=== PATIENT | female | born 1960 | race Caucasian/White ===

== ENCOUNTER 2024-03-21 12:58 | Emergency (ER) | payer OTHER, SELFPAY ==
[2024-03-21 13:09] VITALS: BP 140/80; PULSE 104; RESP 20; TEMP 36.6; O2SAT 98
--- NOTE | 2024-03-21 13:15 | RT.EKG_ITS ---
APPROVED REPORT Exam: Resting ECG Reason for Exam: SOB Patient Location: E HR:85 bpm ECG Measurements Heart Rate 85 AXIS MD 142 P 42 QRSd 97 QRS -29 QT 370 T 14 QTc 440 Conclusion Sinus rhythm...normal P axis, V-rate 60- 99
--- NOTE | 2024-03-21 13:45 | DI.MRI_ITS ---
Exam(s) MR CERVICAL SPINE WO EXAM: MR CERVICAL SPINE WO CLINICAL HISTORY: concern for cerivical, upper thoracic radiculopath TECHNIQUE: Multiplanar multisequence MRI of the cervical spine was performed without intravenous con trast. As per request this study was performed down to the lower T4 level. COMPARISON: No exams were available for comparison FINDINGS: CERVICOMEDULLARY JUNCTION: Intact with no evidence of cerebellar tonsillar ectopia. No obvious abnor mality of the odontoid process. No evidence of Chiari 1 malformation. CERVICAL SPINAL CORD: There is no abnormal signal in the cervical spinal cord and no evidence of foca l cord atrophy nor focal cord swelling. OSSEOUS:There are no cervical fractures evident. No significant osseous lesions in the cervical vert ebrae. No abnormal signal in the C1 arch and odontoid. INDIVIDUAL LEVELS: C2-3: No disc herniation nor central canal stenosis. There is moderate facet arthropathy on the righ t side with mild right-sided foraminal stenosis. Only minimal degenerative changes in the left facet joint at this level and there is no foraminal stenosis on the left side.. C3-4: Normal disc height and signal. There is a very small posterolateral right disc protrusion whic h extends posteriorly 1 mm and is approximately 3 mm wide, best seen on the oblique images. There is no central spinal canal stenosis. The disc protrusion does not extend into the exiting right neural foramen. There is no Luschka joint osteophyte. There are mild degenerative changes in the right fa cet joint. Mild right-sided foraminal stenosis. No left-sided foraminal stenosis. C4-5: Normal disc height and signal. No disc herniation. Central canal dimensions are within normal limits. There are moderate degenerative changes in the right facet joint at this level but no signi ficant right-sided foraminal stenosis.On the left side at this level there are minimal degenerative f acet joint changes and no foraminal stenosis. C5-6: This level exhibits chronic moderate disc space narrowing and anterior osseous lipping. Call Center Operator iorly there is mild symmetrical annular bulging which mildly effaces the anterior thecal sac but with out a distinct disc herniation. There is mild central canal stenosis. Left facet joint unremarkable . There is mild left-sided foraminal stenosis due to mild annular bulging. Right facet joint at thi s level appears unremarkable and there is no foraminal stenosis on the right side at this level C6-7: This level also exhibits chronic advanced disc space narrowing and anterior osteophytes. Poste riorly there is mild central spinal canal stenosis due to relatively symmetrical annular bulging whic h mildly effaces the anterior thecal sac but does not compress the spinal cord. There is no true foc al disc protrusion at this level. There are bilateral Luschka joint osteophytes at this level. Only minimal if any significant facet arthropathy. There is mild bilateral foraminal stenosis which is d ue to the bilateral Luschka joint osteophytes. C7-T1: No disc herniation nor central canal stenosis. Minimal facet arthropathy.No foraminal stenosis . T1-T2: Normal disc height. Posteriorly there is a lateral right disc herniation at the level of the exiting right neural foramen which extends posteriorly 4 mm and is approximately 9 mm wide. This res ults in some narrowing of the exiting right neural foramen at this level. There are minimal degenera tive changes in the facet joints at this level. The exiting left neural foramen appears unremarkable . T2-T3: Mild disc space narrowing and anterior osseous lipping. Mild degenerative anterolisthesis of T2 upon T3 related to moderate bilateral facet arthropathy. There is no disc herniation at this leve l. No foraminal stenosis. T3-T4: No disc herniation nor canal stenosis. No foraminal stenosis. IMPRESSION: 1. There is a lateral right disc herniation at the T1-T2 level which extends posteriorly 4 mm and is approximately 9 mm wide and which results in an element of right-sided foraminal stenosis. There is no central canal stenosis at this level and the opposite-left exiting neural foramen is unremarkable. There are no significant degenerative changes in the facet joints at this level. There is no abnor mal signal in the spinal cord at this level. 2. There is a tiny posterolateral right disc protrusion at C3-4 level, best seen on the oblique image s. There is no central canal stenosis at this level there is mild right-sided foraminal stenosis at this level. 3. Mild central canal stenosis evident at C5-6 and C6-7 levels as described above. Findings discussed by phone with ER physician 03/21/2024 at 4:18 p.m. DATA REPOSITORY:
--- NOTE | 2024-03-21 13:45 | DI.RAD_ITS ---
Exam(s) XR CHEST 2V PA LATERAL EXAM: XR CHEST 2V PA LATERAL CLINICAL HISTORY: shortness of breath. TECHNIQUE: 2D digital imaging was performed. COMPARISON: No exams were available for comparison FINDINGS: 2 views: Heart size is normal. The mediastinum is not widened. Right lung is clear. There are mild increased markings in the inferior lingular segment of the left leg adjacent to the lower left heart border. Probably atelectasis. No pleural effusions. No significant osseous findings. IMPRESSION: Mild increased markings in the inferior lingular segment of the left lung. No pleural effusions DATA REPOSITORY: RADIATION DOSE DELIVERED:
[2024-03-21 14:34] LABS: Abs Immature Grans 0.07 10^3/uL (0.0-0.06); Absolute Basophil Count 0.05 10^3/uL (0.0-0.2); Absolute Eosinophil Count 0.26 10^3/uL (0.0-0.7); Absolute Lymphocyte Count 2.65 10^3/uL (1.2-3.4); Absolute Monocyte Count 0.74 10^3/uL (0.1-0.8); Absolute Neutrophil Count 5.69 10^3/uL (1.2-6.7); Basophils % 0.5 %; Eosinophils % 2.7 %; HCT 43.7 % (36.0-46.0); HGB 14.4 g/dL (11.2-15.7); Immature Grans % 0.7 %; MCH 28.7 pg (27.0-33.0); MCV 87 fL (80-95); MPV 8.9 fL (8.0-11.0); Monocytes % 7.8 %; Neutrophils % 60.3 %; Platelet Count 353 10^3/uL (130-400); RBC 5.01 10^6/uL (3.93-5.22); RDW 12.5 % (11.7-14.6); RDW-SD 40.1 fL; WBC 9.46 10^3/uL (4.4-10.8)
[2024-03-21 14:36] VITALS: BP 132/84; PULSE 94; RESP 16; TEMP 37.1; O2SAT 98
[2024-03-21 14:58] LABS: ALT 22 U/L (14-59); AST 12 U/L (15-37); Albumin 3.3 g/dL (3.4-5.0); Alkaline Phosphatase 113 U/L (46-116); Anion Gap 7.5 mmol/L (3-11); BUN 15 mg/dL (7-18); Bilirubin, Total 0.37 mg/dL (0.2-1.0); CO2 29.5 mmol/L (21.0-32.0); Calcium 9.3 mg/dL (8.5-10.1); Chloride 105 mmol/L (98-107); Glucose 110 mg/dL (74-106); Magnesium 2.3 mg/dL (1.8-2.4); Potassium 4.2 mmol/L (3.5-5.1); Sodium 142 mmol/L (136-145); Total Protein 7.1 g/dL (6.4-8.2); Troponin I 4 ng/L (<or=51)
[2024-03-21 14:59] LABS: NT-proBNP 25 pg/mL (<300)
[2024-03-21 15:04] LABS: D-Dimer 475 ng/mlFEU (<500)
[2024-03-21 16:28] LABS: Troponin I 4 ng/L (<or=51)
--- NOTE | 2024-03-21 16:33 | W.ED.GENAD ---
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 Max dosage is 1mg/day Discharge Instructions Instructions: Radiculopathy of the neck and back (including sciatica) Additional Instructions: Please follow-up with a spinal specialist as soon as possible. Call tomorrow. Please take acetaminophen (tylenol) - 650mg every 6 hours by mouth as needed for pain. Please contact your primary care physician to arrange follow-up. Call tomorrow. Return to the ER immediately for any worsening or new concerning symptoms. HPI General Mode of arrival: ambulatory. Date/Time Provider Initiated Documentation: 03/21/24 13:06. Limitations to Documentation: no limitations. Information obtained by: patient. HPI Narrative: 63-year-old female here with right upper extremity paresthesia and weakness, progressively worse over the past 3 weeks after she experienced a sudden onset of a slipping sensation in her right lower neck while lifting a heavy object. Patient denies pain in her neck or back. Patient describes a sensation as a zombie arm and she is concerned about the degree of weakness impacting her ability to perform fine motor skills with the right hand. Patient also notes some shortness of breath recently over the past week. She wonders if anxiety is contributing to this. Denies associated chest pain. No cough. Related Data Home Medications ?Medication ?Instructions ?Recorded ?Confirmed cyclobenzaprine 5 mg tablet 5 mg PO BID #180 tab-caps 10/19/15 03/21/24 omeprazole 20 mg capsule,delayed 20 mg PO BID #180 tab-caps 10/19/15 03/21/24 release lorazepam 0.5 mg tablet 0.5 mg PO PRN PRN #30 tab-caps 11/05/15 03/21/24 celecoxib 100 mg capsule 100 mg PO BID 03/12/24 03/21/24 Allergies Allergy/AdvReac Type Severity Reaction Status Date / Time Sulfa (Sulfonamide Allergy Mild RASH Verified 03/21/24 13:18 Antibiotics) General Stated Complaint: SOB NAREN: 3 Review of Systems All systems reviewed & are unremarkable except as noted in HPI and below Constitutional Constitutional: Denies fever(s) Neurologic Neurologic: Reports as per HPI Exam Const General: cooperative and no acute distress HENMT Head: normocephalic and atraumatic Mouth: moist mucous membranes Eyes Conjunctivae: normal conjunctivae Sclera: normal sclerae Neck Neck: trachea midline Resp Auscultation: clear to auscultation bilaterally, no rales, no rhonchi and no wheezes Cardio Rate: regular rate and not tachycardic Rhythm: regular rhythm Heart Sounds: no gallops, no murmurs and no rubs Pulses: radial pulses present GI Palpation: soft, not firm, no guarding, no masses, not rigid and nontender Back/Spine/Pelvis Back: No mass, No erythema, No warmth and No back tenderness Cervical Spine: cervical ROM normal Thoracic/Lumbar Spine: thoracic and lumbar spine normal to inspection Skin General skin exam: no rashes or lesions noted Neuro General: patient alert, patient awake, patient oriented x3 and tone normal Cognition: normal cognition Speech: speech normal Gait: normal gait Motor: other (4/5 adolescent medicine specialist strength right) Sensory Exam: no sensory deficits noted Extrem General: no edema Psych Appearance: grossly normal Mental Status: mental status grossly normal Speech and Movement: speech and movement normal Course Vital Signs Vital signs: Vital Signs Temperature 36.6 C 03/21/24 13:09 Pulse 104 H 03/21/24 13:09 Respiratory Rate 20 03/21/24 13:09 Blood Pressure 140/80 03/21/24 13:09 Pulse Oximetry 98 03/21/24 13:09 Temperature 37.1 C 03/21/24 14:36 Temperature Source Oral 03/21/24 14:36 Pulse 94 H 03/21/24 14:36 Respiratory Rate 16 03/21/24 14:36 Respiratory Effort Non-Labored 03/21/24 14:36 Respiratory Depth Normal 03/21/24 14:36 Respiratory Pattern Normal 03/21/24 14:36 Blood Pressure 132/84 03/21/24 14:36 Blood Pressure Position Supine 03/21/24 14:36 Pulse Oximetry 98 03/21/24 14:36 Oxygen Delivery Method Room Air 03/21/24 14:36 Oxygen Flow Rate 0 03/21/24 13:09 Pain Level 4 03/21/24 13:09 Comment Back pain is 07/1103/21/24 13:09 Lab/Test Results Lab/Test Results: Laboratory Tests Range/Units 03/21/24 03/21/24 14:25 15:59 WBC (4.4-10.8) 10^3/uL 9.46 RBC (3.93-5.22) 10^6/uL 5.01 Hgb (11.2-15.7) g/dL 14.4 Hct (36.0-46.0) % 43.7 MCV (80-95) fL 87 MCH (27.0-33.0) pg 28.7 MCHC (32.0-36.0) % 33.0 RDW (11.7-14.6) % 12.5 Plt Count (130-400) 10^3/uL 353 MPV (8.0-11.0) fL 8.9 Immature Gran % % 0.7 Neutrophils % % 60.3 Lymphocytes % % 28.0 Monocytes % % 7.8 Eosinophils % % 2.7 Basophils % % 0.5 Nucleated RBC % (0.0-0.3) % 0.0 Absolute Neutrophils (1.2-6.7) 10^3/uL 5.69 Absolute Lymphocytes (1.2-3.4) 10^3/uL 2.65 Absolute Monocytes (0.1-0.8) 10^3/uL 0.74 Absolute Eosinophils (0.0-0.7) 10^3/uL 0.26 Absolute Basophils (0.0-0.2) 10^3/uL 0.05 D-Dimer (<500) ng/mlFEU 475 Sodium (136-145) mmol/L 142 Potassium (3.5-5.1) mmol/L 4.2 Chloride (98-107) mmol/L 105 Carbon Dioxide (21.0-32.0) mmol/L 29.5 Anion Gap (3-11) mmol/L 7.5 BUN (7-18) mg/dL 15 Creatinine (0.55-1.02) mg/dL 1.0 Est GFR (CKD-EPI 2020) (mL/min/1.73m2) 63.70 Glucose (74-106) mg/dL 110 H Calcium (8.5-10.1) mg/dL 9.3 Magnesium (1.8-2.4) mg/dL 2.3 Total Bilirubin (0.2-1.0) mg/dL 0.37 AST (15-37) U/L 12 L ALT (14-59) U/L 22 Alkaline Phosphatase (46-116) U/L 113 Troponin I (<or=51) ng/L 4 4 NT-Pro-B Natriuret Pep (<300) pg/mL 25 Total Protein (6.4-8.2) g/dL 7.1 Albumin (3.4-5.0) g/dL 3.3 L Medical Decision Making 63-year-old female here with paresthesias and weakness of the right upper extremity, worsening over the past three weeks since she experienced a sudden slip in her right neck While lifting heavy object. Sensation is intact upper extremities bilaterally but does have tingling sensation. Subtle weakness appreciated right compared to left adolescent medicine specialist. EKG was reviewed and interpreted by me: Please see report, nondiagnostic. No STEMI. Chest x-ray was reviewed and interpreted by radiology: Mild increased markings in the inferior lingular segment of the left lung--probably atelectasis. No pleural effusions. MRI of the brain was interpreted by radiology:1. There is a lateral right disc herniation at the T1-T2 level which extends posteriorly 4 mm and is approximately 9 mm wide and which results in an element of right-sided foraminal stenosis. There is no central canal stenosis at this level and the opposite-left exiting neural foramen is unremarkable. There are no significant degenerative changes in the facet joints at this level. There is no abnormal signal in the spinal cord at this level. 2. There is a tiny posterolateral right disc protrusion at C3-4 level, best seen on the oblique images. There is no central canal stenosis at this level there is mild right-sided foraminal stenosis at this level. 3. Mild central canal stenosis evident at C5-6 and C6-7 levels as described above. Results were discussed with the patient. Plan for close outpatient follow-up with spinal specialist. Regarding her shortness of breath, I have ruled out acute pulmonary embolism with negative D-dimer. Also consider ruled out acute CHF and ACS. Suspect shortness of breath is secondary to anxiety. Consider also potential that radiculopathy is affecting upper thoracic respiratory muscles on the right. Patient saturating well in no respiratory distress. Usual and customary discharge instructions were reviewed with the patient. Patient was instructed to avoid activities that worsen any discomfort or symptoms. She verbalized understanding of timely follow-up. She was advised to return immediately for any worsening or new concerning symptoms. Lab Data Lab results reviewed: Yes I reviewed the patient's lab results. Labs: Laboratory Tests Range/Units 03/21/24 03/21/24 14:25 15:59 WBC (4.4-10.8) 10^3/uL 9.46 RBC (3.93-5.22) 10^6/uL 5.01 Hgb (11.2-15.7) g/dL 14.4 Hct (36.0-46.0) % 43.7 MCV (80-95) fL 87 MCH (27.0-33.0) pg 28.7 MCHC (32.0-36.0) % 33.0 RDW (11.7-14.6) % 12.5 Plt Count (130-400) 10^3/uL 353 MPV (8.0-11.0) fL 8.9 Immature Gran % % 0.7 Neutrophils % % 60.3 Lymphocytes % % 28.0 Monocytes % % 7.8 Eosinophils % % 2.7 Basophils % % 0.5 Nucleated RBC % (0.0-0.3) % 0.0 Absolute Neutrophils (1.2-6.7) 10^3/uL 5.69 Absolute Lymphocytes (1.2-3.4) 10^3/uL 2.65 Absolute Monocytes (0.1-0.8) 10^3/uL 0.74 Absolute Eosinophils (0.0-0.7) 10^3/uL 0.26 Absolute Basophils (0.0-0.2) 10^3/uL 0.05 D-Dimer (<500) ng/mlFEU 475 Sodium (136-145) mmol/L 142 Potassium (3.5-5.1) mmol/L 4.2 Chloride (98-107) mmol/L 105 Carbon Dioxide (21.0-32.0) mmol/L 29.5 Anion Gap (3-11) mmol/L 7.5 BUN (7-18) mg/dL 15 Creatinine (0.55-1.02) mg/dL 1.0 Est GFR (CKD-EPI 2020) (mL/min/1.73m2) 63.70 Glucose (74-106) mg/dL 110 H Calcium (8.5-10.1) mg/dL 9.3 Magnesium (1.8-2.4) mg/dL 2.3 Total Bilirubin (0.2-1.0) mg/dL 0.37 AST (15-37) U/L 12 L ALT (14-59) U/L 22 Alkaline Phosphatase (46-116) U/L 113 Troponin I (<or=51) ng/L 4 4 NT-Pro-B Natriuret Pep (<300) pg/mL 25 Total Protein (6.4-8.2) g/dL 7.1 Albumin (3.4-5.0) g/dL 3.3 L Quality:SDOH Health Related Social Needs: No Data to Display PFSH All Active Problems Thoracic radiculopathy (Acute) 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 Brother No problems noted. Grandfather No problems noted. Grandfather Personal history of malignant neoplasm Grandmother Acute ill-defined cerebrovascular disease Grandmother No problems noted. Social History Smoking/Tobacco Use Status: Never Smoking risk assessment performed?: Yes Alcohol Intake: never Drug use: Occasionally Substance use type: marijuana Details: Edible Housing: house Do you feel safe at home: Yes Do you feel safe in your relationship?: Yes
== END 2024-03-21 17:02 | disposition home or self-care (01) ==
PROVIDERS: Emergency Provider Student in an Organized Health Care Education/Training Program; Visit Provider Student in an Organized Health Care Education/Training Program
DX: M51.14 Intervertebral disc disorders with radiculopathy, thoracic region (principal)
CPT/HCPCS: 80053; 93005; 99285; 71046; 72141; 83735; 83880; 84484; 85025; 85379; 93010; 99284

== ENCOUNTER 2024-05-23 01:17 | Outpatient (CLI) | payer OTHER, SELFPAY ==
[2024-05-23 10:44] LABS: Iron 87 ug/dL (50-170); Total Iron Binding Capacity 390 ug/dL (250-450); Transferrin Sat 22 % (15-50)
[2024-05-23 11:01] LABS: Calculated LDL 118 mg/dL (<100); Cholesterol 197 mg/dL (<200); HDL Cholesterol 62 mg/dL (40-60); Triglyceride 87 mg/dL (<150); Vitamin B12 482 pg/mL (193-986)
== END 2024-05-23 01:18 | disposition home or self-care (01) ==
PROVIDERS: Referring Provider Family Medicine; Visit Provider Family Medicine
DX: Z13.6 Encounter for screening for cardiovascular disorders (principal); Z78.9 Other specified health status; Z86.39 Personal history of other endocrine, nutritional and metabolic disease
CPT/HCPCS: 36415; 80061; 82607; 83540; 83550

== ENCOUNTER 2024-05-30 02:09 | Outpatient (CLI) | payer OTHER, SELFPAY ==
--- NOTE | 2024-05-30 07:15 | DI.MAMMO_ITS ---
Exam(s) MAMMO SCREENING EXAM: MAMMO SCREENING CLINICAL HISTORY: screening,Z12.39 TECHNIQUE: Bilateral full field digital CC and MLO mammographic images were obtained with 3D tomosyn thesis and utilizing computer aided detection (CAD). COMPARISON: There are no priors for comparison. FINDINGS: Masses/Architectural Distortion: No suspicious masses or areas of architectural distortion are presen t. Microcalcifications: No suspicious pleomorphic-type are seen. Skin Thickening/Nipple Retraction: None. IMPRESSION: 1. No evidence for malignancy is seen at this time. 2. Unless there is more urgent need, screening mammography is recommended, as per [employer] guidelines. BI-RADS Category 1 - Negative Breast Density - Category B - Scattered areas of fibroglandular density Breast density category C or D implies that the patient has dense breast tissue. Dense breast tissue is very common and is not abnormal but dense breast tissue can make it harder to find cancer on a ma mmogram. Also, dense breast tissue may increase their breast cancer risk. This information about the result of the mammogram report was provided to the patient to raise their awareness. Use this report when you speak with the patient about their risks for breast cancer, which includes their family hist ory. At that time, you may recommend for more screening tests (Ultrasound or MRI) as they might be us eful based on their risk. A negative radiographic report should not delay biopsy if a dominant or clinically suspicious mass is present. Up to ten percent of cancers are not identified on mammography. A negative report may reinforce clinical impression. Adenosis and dense breasts may obscure an underlying neoplasm. False positive reports average 6 to 10%. Patient will receive a letter notifying them of these results.
== END 2024-05-30 02:29 ==
PROVIDERS: PCP Family Medicine; Visit Provider Family Medicine
DX: Z12.31 Encounter for screening mammogram for malignant neoplasm of breast (principal); R92.323 Mammographic fibroglandular density, bilateral breasts
CPT/HCPCS: 77063; 77067

== ENCOUNTER 2024-09-16 07:55 | Day surgery (SDC) | payer OTHER, SELFPAY ==
--- NOTE | 2024-09-15 20:40 | HPE_ITS ---
Assessment and Plan Assessment and plan (1) Gaston esophagus: Status: Acute Assessment and plan: We reviewed the plan for EGD and colonscopy. I think Veena has a good understanding of the risks and the benefits of the procedure. We can proceed with EGD and colonoscopy as planned. History of Present Illness History of Present Illness Chief Complaint: Barretts esophagus and screening colonscopy Narrative: 63 y/o female with history of Baretts esophagus, GERD and anxiety presents for colonoscopy screening pre-op. Her last screening was in 2019 which was unremarkable in the state of [place]. She has a family history of colon cancer in her father whom was dx in his 40s. She describes that her bowel habits fluctuate based on her diet. When she has constipation she notes rare bright red blood following a BM. Denies any black tarry stools, abdominal pain, diarrhea or constipation. She denies constitutional symptoms. Of note she has a history of Barretts esophagus and is due for screening EGD. She denies chest pain, palpitations, dyspnea or dyspnea with exertion. She denies prior history or family history of adverse reactions or complications with anesthesia. The patient denies any history of stroke, [place], seizures, bleeding or clotting disorders. She denies having any implanted metal in her body. Since her last visit, there have been no major changes with regards to the interval history PFSH All Active Problems Vegetarian (Acute) History of iron deficiency (Acute) Screening for cardiovascular condition (Acute) Family history of colon cancer (Acute) Gaston esophagus (Acute) Medical History Hx of neck injury pt. states she has full ROM, but she has a buldging of the disc and a pinched nerve GERD without esophagitis Osteoarthritis Actinic keratitis Injury of splenic artery Low back pain Surgical History Hysterectomy, Laproscopic (~2004) FOR ENDOMETRIOSIS; NO OVARIES Family History (Updated 05/02/24 @ 13:52 by Susana Govea) Mother Personal history of malignant neoplasm Lung Alcohol use disorder Depression Anxiety Father Personal history of malignant neoplasm Colon Heart disease CABG Colon cancer Sister Disorder of thyroid gland Sister Disorder of thyroid gland Grandfather Alcohol use disorder Grandfather Personal history of malignant neoplasm Grandmother Acute ill-defined cerebrovascular disease Uncle Alcohol use disorder Social History Smoking/Tobacco Use Status: Never Second Hand Exposure: No Smoking risk assessment performed?: Yes Alcohol Intake: never Drug use: Occasionally Substance use type: marijuana Details: Edible Adopted: No Caregiver/Support person: No Foster care: No Household members: significant other Housing: house Number of Children: 1 number of grandchildren: 0 Communication Needs: None Education Level: master's degree Do you need help understanding health information?: Rarely current occupation: Professor Pets and animals: No Sexually active: Yes Do you think of yourself as: straight/heterosexual Current gender identity: female What is your relationship status?: living with partner How often do you talk on the phone with friends or family?: three or more times per week How often do you get together with friends or relatives?: once per week Do you belong to any clubs or organized social groups?: yes Panel score (0-1 are the most socially isolated patients): 3 Duration: < 15 minutes/day Frequency: 1-2 times per week Alyssa/Scientology: Christianity Special alyssa needs: No Seatbelt use: always Helmet use: Yes Helmet use: always Drive intox or ride w/intox regional company hazmat tanker driver: No Do you feel safe at home: Yes Do you feel safe in your relationship?: Yes Meds Allergies and Home Medications Allergies Allergy/AdvReac Type Severity Reaction Status Date / Time gluten Allergy Severe Exhaustion; Verified 09/13/24 14:18 bowel issues; stomach pain Sulfa (Sulfonamide Allergy Mild RASH Verified 09/13/24 14:18 Antibiotics) Home Medications ?Medication ?Instructions ?Recorded ?Confirmed ?Type celecoxib 100 mg capsule 100 mg PO BID 03/12/2409/13 History acetaminophen 500 mg capsule 500 mg PO Q6H PRN 5 09/13/24 History cyclobenzaprine 5 mg tablet 5 mg PO BID #180 tab-caps 05/07/24 09/13/24 Rx omeprazole 20 mg capsule,delayed 20 mg PO DAILY #180 t ab-caps 05/07/24 09/13/24 History release Exam Const General: cooperative, healthy appearing and not in acute distress Neck Neck: normal visual inspection, no lymphadenopathy and supple Resp Effort & Inspection: normal respiratory effort Auscultation: clear to auscultation bilaterally Cardio Jugular venous pressure: no JVD Rate: regular rate Rhythm: regular rhythm Heart Sounds: S1 normal and S2 normal GI Inspection: normal to inspection Palpation: soft, no guarding, no hernias and nontender Percussion: normal to percussion Auscultation: normal bowel sounds Neuro General: patient alert, patient awake and patient oriented x3 Psych Appearance: grossly normal
--- NOTE | 2024-09-15 20:43 | W.PM.DSUDISC ---
Date of service: 09/16/24 Discharge Plan Disposition Patient Disposition: Home Condition: Good Discharge Details Reason For Visit: EGD and colonoscopy Attending Provider: Agusto Garduno Primary Care Provider: Mando Ramirez Home Meds and New Rx's Prescriptions: Continued cyclobenzaprine 5 mg tablet 5 mg PO BID Qty: 180 3RF celecoxib 100 mg capsule 100 mg PO BID omeprazole 20 mg capsule,delayed release(DR/EC) 20 mg PO DAILY Qty: 180 Discontinued polyethylene glycol 3350 17 gram/dose powder 238 g PO ONCE Qty: 238 0RF Rx Instructions: take per colonoscopy instructions bisacodyl [Dulcolax (bisacodyl)] 5 mg tablet,delayed release (DR/EC) 5 mg PO ONCE Qty: 4 0RF Rx Instructions: take per colonoscopy instructions Discharge Instructions Additional Instructions: Veena, it was very nice meeting you today, and I hope you are comfortable through the procedures. Things went very smoothly. With regards to your upper endoscopy, you do have a small sliding hiatal hernia. This occurs on the top part of your stomach slips above the diaphragm, or the breathing muscle. There are operations to fix this, but based on the character of yours, I suspect that would be of little benefit. Certainly, if you are interested in a referral to a specialist who does that, we could arrange that. The area of your esophagus where it connects onto your stomach looks very good. This is the area of concern for Gaston's esophagus. I did do some biopsies here today to reassess that, but I suspect your antacid medications are doing a good job protecting it. He had a small polyp in your stomach that I also removed. Based on its location, I suspect that this is a totally benign fundic gland polyp, but I will have the pathologist remove it just to be safe. With regards to the colonoscopy, things also went very smoothly there. Your prep was outstanding, and I could see everything fine. I did find, and removed, 1 small polyp today. This is certainly nothing to worry about. I will have this tested as well since polyps in the colon, different varieties, we use that information to guide the timing of future colonoscopies. If you need anything or have any questions at all, please do not hesitate to ask, otherwise the office will be in touch once we have all the results. 1. If tolerated, consume a soft, low fiber diet for 1-2 days. 2[address] Do not drive, drink alcohol, operate machinery, make critical decisions, or do activities that require coordination or balance for 24 hours. 3. Because air was put into your colon during the procedure, expelling air from your rectum (passing gas or farting) is normal. 4. You may not have a bowel movement for 1-3 days because of the colonoscopy prep. This is normal. 5. You may experience a sore throat for 24 to 48 hours. You may use throat lozenges or gargle with warm salt water to relieve the discomfort. 6. Because air was put into your stomach during the procedure, you may experience some belching. 7. Go directly to the emergency room if you notice any of the following: Develop chills (warm to touch), or if you have a thermometer and your temperature is above 101 Difficulty breathing or difficultly swallowing Persistent vomiting Severe abdominal pain, other than gas cramps Severe chest pain Black, tarry stools Any bleeding ? exceeding one tablespoon 8. Call your physician if the site where your intravenous was started becomes red, swollen, painful, and warm to touch. 9. Your physician has reviewed your pre-procedure medications. Please continue to take those medications as previously ordered. You will be given specific information/education regarding any changes to your medications before leaving. 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
--- NOTE | 2024-09-15 20:46 | ENDO_ITS ---
Date of service: 09/16/24 Time of Service: 09:57 Endoscopy Report DATE OF PROCEDURE: 09/16/24 PRE-OP DIAGNOSIS: barretts esophagus and screening colonoscopy POST-OP DIAGNOSIS: other (Sliding hiatal hernia, gastric polyp; 0.25 cm ascending colon polyp) PROCEDURE: EGD and colonoscopy SURGEON: Agusto Garduno ANESTHESIA TYPE: General:No Airway ESTIMATED BLOOD LOSS: 5 PATHOLOGY: other (Gastric fundic land, four-quadrant biopsies of GE junction; 0.25 cm flat ascending colon polyp) COMPLICATIONS: None DISPOSITION: same day INDICATIONS: Veena is a 63 year old woman with a history of Barretts eophagus who needs her next EGD and a screening colonoscopy PREP: Miralax/Dulcolax PROCEDURE START TIME: 09:24 PROCEDURE END TIME: 09:43 COLONOSCOPY RETRACTION TIME: 7 FINDINGS: Sliding hiatal hernia, gastric polyp; 0.25 cm ascending colon polyp PROCEDURE DESCRIPTION: After the initiation of anesthesia, and with the assistance of a bite block, I advanced a standard gastroscope through the mouth past the hypopharynx and into the esophagus.? Under the direct vision of the scope, I advanced down the esophagus towards the stomach.? The upper and midesophagus were totally normal and healthy appearing. There is a small sliding hiatal hernia. There is minimal irregularity of the Z-line, which measures approximately 38 cm from the incisors. Narrowband imaging was used to assist with the analysis here. It did not appear consistent with Gaston's esophagus. Based on the history, I did perform four-quadrant biopsies using cold forceps with minimal bleeding. I am able to advance across the GE junction with ease. The stomach was insufflated into the rugae were obliterated. I performed retroflexion. There is a small fundic gland polyp which was removed with cold forceps. There was no significant bleeding here. I can advance down around the incisura angularis and through the pylorus with ease. The 1st, 2nd, and 3rd portions of the duodenum were all normal and healthy. I then emptied the duodenum, and brought the camer a back up into the stomach. I emptied the stomach prior to removing the camera out along the length of the esophagus. We then rolled Veena into the left lateral decubitus position. I began by perfor lillian an external anorectal exam.? Perineum and skin were normal, as was the anal verge.? There was no evidence of external hemorrhoids.? Next, I performed a digital rectal exam.? I did not appreciate any abnormal findings.? Next, I advanced a colonoscope into the rectal vault.? I performed retroflexion.? This appeared normal.? Using insufflation, I then advanced the colonoscope beyond the rectal folds and into the sigmoid colon before advancing towards the cecum.? The quality of the prep was excellent.? The scope was noted to be in the cecum by identification of the ileocecal valve and appendiceal orifice.? I then began withdrawing the colonoscope using repeated irrigation as necessary for full evaluation of the colonic mucosa. ?Within the ascending colon was a 0.25 cm flat polyp. This was removed with cold forceps without any issues. Once the scope was withdrawn to the level of the rectum, great care was taken to examine portions of the rectal folds.? Finally, the scope was withdrawn and the patient was brought to the same-day surgery recovery unit as the anesthetic wore off. ?The findings and instructions were shared with the patient prior to discharge.
[2024-09-16 08:10] VITALS: BP 147/81; PULSE 87; RESP 16; TEMP 36.2; O2SAT 100
[2024-09-16] MEDS: Lactated Ringers 1,000 ML 80 ML IV (08:27)
--- NOTE | 2024-09-16 08:47 | W.ANESPRE ---
General Info Date of Service Date Performed: 09/16/24 Height: 5 ft 5 in Weight: 87.6 kg Body Mass Index (BMI): 32.1 Surgical Procedure: Operation Date: 09/16/24 09:20 Proposed Procedure Side Surgeon p Colonoscopy/Gastroscopy Agusto Garduno MD Meds Allergies and Home Medications Allergies Allergy/AdvReac Type Severity Reaction Status Date / Time gluten Allergy Severe Exhaustion; Verified 09/16/24 08:18 bowel issues; stomach pain Sulfa (Sulfonamide Allergy Mild RASH Verified 09/16/24 08:18 Antibiotics) Home Medication ?Medication ?Instructions ?Recorded celecoxib 100 mg capsule 100 mg PO BID 03/12/24 cyclobenzaprine 5 mg tablet 5 mg PO BID #180 tab-caps 05/07/24 omeprazole 20 mg capsule,delayed 20 mg PO DAILY #180 tab-caps 05/07/24 release Current Visit Medications: Current Medications Generic Name Dose Route Start Last Admin Trade Name Freq PRN Reason Stop Dose Admin Ringer's Solution 1,000 mls @ 80 mls/hr 09/16/24 06:00 09/16/24 08:27 IV 09/16/24 23:59 80 mls/hr INFUSION NAVYA Administration IV Miscellaneous Supplies 1 each 09/16/24 06:00 Iv Access IV 09/16/24 23:59 DIRECTED NAVYA Ondansetron HCl 4 mg 09/15/24 20:49 Ondansetron 4 Mg/2 Ml Vial IVP 10/15/24 20:48 Q4H PRN PRN Nausea / Vomiting Sodium Chloride 0 ml 09/16/24 06:00 Normal Saline Flush 10 Ml Syr IV 09/16/24 23:59 PRN PRN Sodium Chloride 0 ml 09/16/24 06:00 Normal Saline 10 Ml Vial IJ 09/16/24 23:59 DIRECTED PRN Sterile Water 0 ml 09/16/24 06:00 Water,Injection,Sterile 10 Ml Vial IJ 09/16/24 23:59 DIRECTED PRN PFSH Active Problems Active Problems: Problem Status Onset Code Vegetarian Acute Z78.9 History of iron deficiency Acute Z86.39 Screening for cardiovascular condition Acute Z13.6 Family history of colon cancer Acute Z80.0 Gaston esophagus Acute K22.70 Medical History Medical History Hx of neck injury pt. states she has full ROM, but she has a buldging of the disc and a pinched nerve GERD without esophagitis Osteoarthritis Actinic keratitis Injury of splenic artery Low back pain Medical History Comments:: L hip pain this morning (chronic) Surgical History Surgical History Hysterectomy, Laproscopic (~2004) FOR ENDOMETRIOSIS; NO OVARIES Tobacco Smoking/Tobacco Use Status: Never Second hand exposure: No Alcohol Alcohol Intake: never Substance Use Substance use: Occasionally Substance use type: marijuana Details: Edible. Vital Signs and Lab Results Vital Signs Most Recent Vital Signs in EMR: Most Recent Vital Signs Temp Pulse Resp BP Pulse Ox 36.2 C L 87 16 147/81 H 100 09/16/24 08:10 09/16/24 08:10 09/16/24 08:10 09/16/24 08:10 09/16/24 08:10 Imaging and Studies Imaging and Studies Study information below may be from another EMR and interpreted by another provider. Please see original notes in EMR for more complete details. Stress Test Summary: 2016: normal exam Anesthesia Assessment and Plan Anesthesia History Personal History: No History of Anesthesia Complications Family History: No Family History of Anesthesia Complications Exercise Tolerance Exercise Tolerance: Metabolic Equivalents>4 Pertinent Negatives Pertinent Negatives: No Symptoms of GERD Cardiac & Pulmonary Exam Cardiac Exam: Normal S1/S2 Heart Sounds Pulmonary Exam: Clear Bilateral Breath Sounds Implantable Cardiac Device Does patient have a Pacemaker or an ICD?: No Airway Exam Known Difficult Airway: No Mallampati Class: 2 Mouth Opening: Normal (> 3cm) Thyromental Distance: Greater than 3 cm Neck Range of Motion: Full ROM Neck Circumference: Normal Teeth Condition: Normal Dentition ASA Classification ASA Score: ASA 2 Emergency Case?: No NPO Status NPO Status: NPO Clears >2 hours, Solids >8 hours Anesthesia Plan Resuscitation Status: Full Code Anesthesia Technique: General Anesthesia Airway Planned: Natural Airway Monitors Used: Standard Monitors
[2024-09-16 08:50] VITALS: BMI 32.1
--- NOTE | 2024-09-16 09:28 | BOWEL_PTH ---
PATIENT: Veena Cooley LOC: [facility] U#:[id number] AGE/SX: 63/F ROOM: RE09/16/[address]: Agusto Garduno MD : [id number] BED: DIS: 09/16/2024 SPEC #: [id number] RECD: 09/16/24 12:58 STATUS: NUVIA REQ #: [id number] BRIT: 09/16/24 09:[address]: Agusto Garduno DEPT: Surgical Specimen RECD BY: Alfreda Lester ENTERED: 09/16/24 12:59 SP TYPE: Bowel OTHR DR: Mando Ramirez DO Tissues: 1 - STOMACH BIOPSY 2 - ESOPHAGUS BIOPSY 3 - BIOPSY BOWEL Procedures: GROSS AND MICRO LEVEL 4 Comments: [id number]
[2024-09-16 09:50] VITALS: BP 125/66; PULSE 83; RESP 16; TEMP 36.2; O2SAT 97
[2024-09-16 10:12] VITALS: BP 125/68; PULSE 68; RESP 16; TEMP 36.2; O2SAT 99
--- NOTE | 2024-09-16 11:34 | W.ANESPOSTOP ---
Postoperative Evaluation Date, Time and Location Date Performed: 09/16/24 Time Performed: 10:08 Patient Location: Day Surgery Unit Vital Signs Most Recent Imported Vital Signs: Most Recent Vital Signs Temp Pulse Resp BP Pulse Ox 36.2 C L 68 16 125/68 99 09/16/24 10:12 09/16/24 10:12 09/16/24 10:12 09/16/24 10:12 09/16/24 10:12 Pain Score Most Recent Pain Score: Most Recent Pain Score Pain Level 0 09/16/24 10:12 Assessment Mental Status: Awake (Alert & Oriented to Patient Baseline) Airway and Respiratory Function: Patent airway with normal (patient baseline) respiratory exam Cardiovascular Function: Hemodynamically Stable Hydration Status: Adequately Hydrated Nausea & Vomiting: No Nausea or Vomiting Pain: Pt. Denies Any Pain Peripheral Nerve Block: Patient did not receive a nerve block
== END 2024-09-16 10:31 | disposition home or self-care (01) ==
LOC: SUR 07:55
PROVIDERS: PCP Family Medicine; Visit Provider Surgery
PROC: (CPT 45380; principal; 2024-09-16 09:15)
DX: K22.70 Barrett's esophagus without dysplasia (principal); Z12.11 Encounter for screening for malignant neoplasm of colon; K44.9 Diaphragmatic hernia without obstruction or gangrene; K31.7 Polyp of stomach and duodenum; K63.5 Polyp of colon; K63.89 Other specified diseases of intestine
CPT/HCPCS: 45380; 43239; 88305; J2003; J2704

== ENCOUNTER 2024-11-21 15:14 | Outpatient (CLI) | payer OTHER, SELFPAY ==
--- NOTE | 2024-11-21 15:00 | RT.EKG_ITS ---
APPROVED REPORT Exam: Resting ECG Reason for Exam: Presyncopal symptoms Patient Location: O HR:91 bpm ECG Measurements Heart Rate 91 AXIS NE 146 P 60 QRSd 104 QRS -26 QT 368 T 28 QTc 453 Conclusion Sinus rhythm...normal P axis, V-rate 50- 99 RSR' in V1 or V2, probably normal variant...small R' only Normal Electrocardiogram
== END 2024-11-21 15:15 | disposition home or self-care (01) ==
LOC: DI.KIM 15:15
PROVIDERS: PCP Family Medicine; Visit Provider Family Medicine
DX: R00.0 Tachycardia, unspecified (principal)
CPT/HCPCS: 93010

== ENCOUNTER 2024-11-21 16:18 | Outpatient (CLI) | payer OTHER, SELFPAY ==
[2024-11-21 17:30] LABS: Anion Gap 8.9 mmol/L (3-11); BUN 15 mg/dL (7-18); CO2 27.1 mmol/L (21.0-32.0); Calcium 10.1 mg/dL (8.5-10.1); Chloride 105 mmol/L (98-107); Estimated GFR 82.74 (mL/min/1.73m2); Glucose 108 mg/dL (74-106); Magnesium 2.4 mg/dL (1.8-2.4); Potassium 4.2 mmol/L (3.5-5.1); Sodium 141 mmol/L (136-145)
== END 2024-11-21 16:19 | disposition home or self-care (01) ==
LOC: LBO 16:18
PROVIDERS: PCP Family Medicine; Visit Provider Family Medicine
DX: R00.0 Tachycardia, unspecified (principal)
CPT/HCPCS: 36415; 80048; 83735

== ENCOUNTER 2024-12-03 14:14 | Outpatient (CLI) | payer OTHER, SELFPAY ==
--- NOTE | 2024-12-24 11:50 | W.CARDEVENT ---
Date of service: 12/24/24 Time of Service: 11:50 Cardiac Event Recorder Referring Provider:: Mando Ramirez Indications:: Syncope Cardiac Event Note: This is a cardiac event monitor. Patient was monitored for 13 days and 2 hours Rhythm throughout was sinus with an average heart rate of 93. Minimum was 57, maximum 169 There were very rare isolated ventricular ectopic beat. There was 1 run of nonsustained ventricular tachycardia 4 beats in duration There were very rare isolated atrial premature beats. A total of 3 self-limited atrial runs occurred There was no atrial fibrillation, no high-grade AV block, no pauses greater than 3 seconds. No symptoms were reported
== END 2024-12-03 14:15 | disposition home or self-care (01) ==
PROVIDERS: PCP Family Medicine; Visit Provider Family Medicine
DX: R00.0 Tachycardia, unspecified (principal)
CPT/HCPCS: 93246

== ENCOUNTER 2024-12-11 03:04 | Outpatient (CLI) | payer OTHER, SELFPAY ==
--- NOTE | 2024-12-11 07:30 | DI.US_ITS ---
APPROVED REPORT EXAM: Comprehensive 2D, Doppler, and color-flow Echocardiogram Patient Location: Out-Patient Vibrator Equipment Tester: Alex Enriquez RDCS (AE) Indications: Pre-syncope, possible LVH on EKG, tachycardia Other Information Study Quality: Fair. Technically limited study due to body habitus. Conclusion Normal left ventricular wall thickness and chamber size. Ejection fraction is 50 to 55%. There are no segmental wall motion abnormalities Normal right ventricular size and function Both atria are normal in size There is no structural or hemodynamically significant valvular disease Wall motion Left Ventricle The left ventricle is normal size. The left ventricular systolic function is normal. The left ventricular ejection fraction is within the normal range. There is normal left ventricular wall thickness. There is normal LV segmental wall motion. There is no ventricular septal defect visualized. LVEF is 50 to 55% Right Ventricle The right ventricle is normal size. The right ventricular systolic function is normal. Atria The left atrium size is normal. The right atrium size is normal. The interatrial septum is intact with no evidence for an atrial septal defect. Aortic Valve The aortic valve is normal in structure. Aortic valve is trileaflet. There is no aortic valvular stenosis. No aortic regurgitation is present. Mitral Valve The mitral valve is normal in structure. No evidence of mitral valve stenosis. There is no mitral valve regurgitation noted. Tricuspid Valve The tricuspid valve is normal in structure. There is no tricuspid valve stenosis. Trace tricuspid regurgitation. Pulmonic Valve The pulmonary valve is normal in structure. There is no pulmonic valvular stenosis. There is no pulmonic valvular regurgitation. Great Vessels The aortic root is normal in size. The ascending aorta is normal in size. IVC is normal in size and collapses >50% with inspiration. Pericardium There is no pericardial effusion. 2D Dimensions IVSD d PLAX 0.78 cm F: 0.6-1.0 Ao Root d 2.59 cm F: 2.7 - 3.3 LVPW d PLAX 0.76 cm F: 0.6 - 1.0 Ao Asc Diam d 3.20 cm F: 2.3 - 3.1 LVID d PLAX 4.84 cm F: 3.8 - 5.2 LVDs 3.60 cm F: 2.2 - 3.5 LV EF Teichholz 50.3 % FS 25.59 % LV EDV (Teich) 109.7 mL LV ESV (Teich) 54.5 mL Stroke Vol Index (Teich) 28.16 M-Mode TAPSE 1.42 cm (M/F) >1.7 Auto EF LV EDV A4C 78.0 mL LV EDV A2C 75.4 mL LV EDV BP 79.3 mL LV ESV A4C 42.7 mL LV ESV A2C 37.8 mL LV ESV BP 40.8 mL LVEF(%) A4C 45.3 % LVEF(%) A2C 50.0 % LVEF(%) BP 48.5 % LV SV A4C 35.3 ml LV SV A2C 37.7 ml LV SV BP 38.4 ml LV CO A4C 2.6 L/min LV CO A2C 3.1 L/min LV CO BP 2.9 L/min HR A4C 74.23 BPM HR A2C 82.39 BPM LV EDV Index (BP) LA Volume LA Length A4C 3.3 cm LA Length A2C 3.0 cm LA Area A4C s 8.84 cm2 LA Area A2C s 9.73 cm2 LA Vol A4C A-L 19.91 mL LA Vol A2C A-L 26.61 mL LA Vol Biplane A-L 24.2 mL LA Vol/BSA A4C A-L LA Vol/BSA A2C A-L LA Vol/BSA BP A-L 12.3 mL/m2 LA Vol A4C MOD 18.3 mL LA Vol A2C MOD 23.5 mL LA Vol BP MOD 21.7 mL RA Volume RA Area A4C 6.6 cm2 RA ESV A4C (A-L) 10.2mL RA Vol/BSA A4C A-L RA Length A4C 3.6 cm RA ESV A4C (MOD) 9.7mL LV Diastology MV E' medial 0.087 (>0.07 m/s) MV E Vmax 0.42 (0.4-1.3 m/s) MV E/E' MED 4.86 (<14) MV A Vmax 0.70 (0.4-1.3 m/s) MV E' lateral 0.084 (>0.1 m/s) E/A Ratio 0.6 MV E/E' LAT 5.03 (<14) MV E' Average 0.086 m/s MV E/E'(average) 4.94 Aortic Valve AoV Vmax 1.02 m/s LVOT Vmax 0.79 m/s AoV Peak Grad 4.1 mmHg LVOT Peak Grad 2.5 mmHg AoV Area (Vmax) 2.51 cm2 LVOT VTI 0.154 m AoV VTI 0.213 m LVOT Mean Grad 1.3 mmHg AoV Mean Erasto. 0.71 m/s LVOT SV 49.94 mL AoV Mean Grad 2.3 mmHg LVOT Diam s 2.00 cm AoV Area (VTI) 2.35 cm2 AV Regurg Peak Gr. 4.14 mmHg Velocity Ratio 0.77 Mitral Valve MV DT 282 (160-240 msec) Pulmonary Valve PV Vmax 0.82 (0.5-1.5 m/s) RVOT Vmax 0.49 m/s PV Peak Grad 2.7 mmHg RVOT Peak Gr. 1.0 mmHg PV Mean Erasto 0.58 m/s RVOT VTI 0.108 m PV Mean Grad 1.6 mmHg RVOT Mean Gr. 0.5 mmHg
== END 2024-12-11 03:24 ==
LOC: DI 03:04
PROVIDERS: PCP Family Medicine; Visit Provider Internal Medicine Cardiovascular Disease
DX: R00.0 Tachycardia, unspecified (principal)
CPT/HCPCS: 93306